=== PATIENT | male | born 1985 | race Caucasian/White ===

== ENCOUNTER 2023-01-26 05:05 | Observation (INO) | payer OTHER, SELFPAY ==
[2023-01-26] VITALS (24 sets, daily range): BP systolic 113–158; BP diastolic 10–103; PULSE 76–100; RESP 14–20; TEMP 36.4–37.2; O2SAT 94–99; BMI 28.0; BMI 29.2
--- NOTE | 2023-01-26 05:22 | ED.CHESTPAI1 ---
HPI - Chest Pain General Chief Complaint: Chest Pain Stated Complaint: fast heart rate Time Seen by Provider: 01/26/23 05:17 History of Present Illness HPI narrative: patient woke up from sleeping on the couch and walked up stairs to go to bed. Noticed his heart was racing while walking up the stairs. Went to the bathroom and while standing there to urinate became nauseated and diaphoretic. Decided to go back down stairs and became light headed and also developed indigestion just beneath his left rib cage. Had similar indigestion last week. Decided to come in to get checked. He now arrives asymptomatic. Past history of HTN and has known aneurysm right iliac that is followed by [facility] MD complaint: Reports chest pain Related Data Home Medications Medication Instructions Recorded Confirmed buspirone 10 mg tablet mg 01/26/23 dextroamphetamine-amphetamine 5 mg 5 mg PO DAILY 01/26/23 01/26/23 tablet (Adderall) losartan 25 mg tablet mg 01/26/23 pantoprazole 40 mg tablet,delayed mg PO 01/26/23 release Allergies Allergy/AdvReac Type Severity Reaction Status Date / Time Penicillins Allergy Unknown Verified 01/26/23 05:13 Review of Systems ROS Status of ROS 10 or more systems reviewed and unremarkable except as noted in history and below PFSH PFS Social History Smoking status: Never smoker Exam Constitutional Vital Signs, click to edit/add: Last Vital Signs Temp 97.6 F 01/26/23 05:08 Pulse 84 01/26/23 06:40 Resp 19 01/26/23 06:40 BP 129/100 H 01/26/23 06:30 Pulse Ox 96 01/26/23 06:40 O2 Del Method Room Air 01/26/23 05:08 Common normals: no apparent distress, average body habitus, oriented x3, no limitations and healthy appearing HENFL Common normals: normocephalic and head/scalp atraumatic Eye Common normals: PERRL, EOMs intact bilaterally and conjunctivae normal Respiratory Common normals: normal respiratory effort and no retractions Cardio Common normals: regular rate, regular rhythm, S1 normal heart sound and S2 normal heart sound GI Common normals: Normal to inspection, nondistended, normoactive bowel sounds present, soft to palpation and non-tender Extremity Common normals: normal to inspection and full ROM Neuro Common normals: oriented x3, CN's II-XII intact bilaterally, moves all extremities, no focal motor deficits and no sensory deficits noted Psych Appearance: grossly normal Course Vital Signs Vital signs: Vital Signs Temperature 97.6 F 01/26/23 05:08 Pulse Rate 88 01/26/23 05:08 Respiratory Rate 14 01/26/23 05:08 Blood Pressure 158/10 H 01/26/23 05:08 Pulse Oximetry 99 01/26/23 05:08 Oxygen Delivery Method Room Air 01/26/23 05:08 Temperature 97.6 F 01/26/23 05:08 Pulse Rate 84 01/26/23 06:40 Respiratory Rate 19 01/26/23 06:40 Blood Pressure 129/100 H 01/26/23 06:30 Pulse Oximetry 96 01/26/23 06:40 Oxygen Delivery Method Room Air 01/26/23 05:08 MDM - Chest Pain MDM Narrative Medical decision making narrative: patient presents with complaint of indigestion. Episode last week. This AM indigestion was preceded by heart racing , diaphoresis , nausea and near syncope. EKG NSR with nonspecific inverted Ts not seen on EKG 04/2022. cxray normal and first troponin neg. Discussed with Dr De La O and will plan ob admission if 2nd Troponin is neg also Lab Data Labs: Lab Results 01/26/23 Range/Units 05:17 WBC 7.5 (4.0-11.0) 10^3/uL RBC 5.12 (4.70-6.10) 10^6/uL Hgb 15.5 (14.0-18.0) g/dL Hct 46.0 (42.0-54.0) % MCV 89.8 (80.0-94.0) fL MCH 30.3 (25.9-34.0) pg MCHC 33.7 (29.9-35.2) g/dL RDW 14.9 (11.0-15.0) % Plt Count 244 (150-450) 10^3/uL MPV 10.7 (9.5-13.5) fL Neut % (Auto) 60.3 (43.0-75.0) % Lymph % (Auto) 27.4 (20.5-60.0) % Curry % (Auto) 8.3 (1.7-12.0) % Eos % (Auto) 2.9 (0.9-7.0) % Baso % (Auto) 0.8 (0.2-2.0) % Neut # (Auto) 4.5 (1.4-6.5) 10^3/uL Lymph # (Auto) 2.1 (1.2-3.8) 10^3/uL Curry # (Auto) 0.6 (0.3-0.8) 10^3/uL Eos # (Auto) 0.2 (0.0-0.7) 10^3/uL Baso # (Auto) 0.1 (0.0-0.1) 10^3/uL Abs Immat Gran (auto) 0.02 (0.00-0.03) 10^3/uL Imm/Tot Granulo (auto) 0.3 (0.0-0.5) % D-Dimer <0.19 (<=0.59) mg/L FEU Sodium 138 (136-145) mmol/L Potassium 3.5 (3.5-5.1) mmol/L Chloride 101 (98-107) mmol/L Carbon Dioxide 31.3 (21.0-32.0) mmol/L Anion Gap 9.2 BUN 16.0 (7.0-18.0) mg/dL Creatinine 1.41 H (0.70-1.30) mg/dL Est GFR ( Amer) >60 (>=60) Est GFR (Non-Af Amer) 56 L (>=60) BUN/Creatinine Ratio 11.3 Glucose 115 H (74-106) mg/dL Calcium 8.8 (8.5-10.1) mg/dL Troponin I High Sens 8.4 (4.0-76.1) pg/mL Discharge Plan Discharge Chief Complaint: Chest Pain Clinical Impression: Chest pain Patient Disposition: Admitted as Observation
--- NOTE | 2023-01-26 05:26 | XR_ITS ---
The [address] [address] Patient Name: MAGO MARTINEZ MRN: [id number] date: 1985 Sex: M Assigned Patient Location: ER Current Patient Location: ER Accession/Order Number: [id number] Exam Date: 01/26/2023 05:31 Report Date: 01/26/2023 06:46 At the request of: PATT GUERRA Procedure: XR chest 1V EXAM: XR chest 1V HISTORY: chest pain COMPARISON: 04/11/2022 TECHNIQUE: AP FINDINGS: Cardiac silhouette is within normal limits. The lung thompson show no evidence for consolidation, infiltrate, pneumothorax or pleural effusions. The diaphragmatic and osseous structures are intact without evidence for an acute osseous abnormality. Chronic posterior left eighth and right ninth fractures again visualized. XR/XR chest 1V IMPRESSION: No acute cardiopulmonary process. Electronically authenticated by: SONYA SNYDER Date: 01/26/2023 06:46
--- NOTE | 2023-01-26 05:26 | ECG_ITS ---
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
[2023-01-26 05:33] LABS: Basophils Absolute Auto 0.1 10^3/uL (0.0-0.1); Basophils Percent Auto 0.8 % (0.2-2.0); Eosinophils Absolute Auto 0.2 10^3/uL (0.0-0.7); Eosinophils Percent Auto 2.9 % (0.9-7.0); Hemoglobin 15.5 g/dL (14.0-18.0); Immature Granulocytes Abs Auto 0.02 10^3/uL (0.00-0.03); Immature Granulocytes Pct Auto 0.3 % (0.0-0.5); Lymphocytes Absolute Auto 2.1 10^3/uL (1.2-3.8); Lymphocytes Percent Auto 27.4 % (20.5-60.0); Mean Corpuscular HGB Conc 33.7 g/dL (29.9-35.2); Mean Corpuscular Hemoglobin 30.3 pg (25.9-34.0); Mean Corpuscular Volume 89.8 fL (80.0-94.0); Mean Platelet Volume 10.7 fL (9.5-13.5); Monocytes Absolute Auto 0.6 10^3/uL (0.3-0.8); Monocytes Percent Auto 8.3 % (1.7-12.0); Neutrophils Absolute Auto 4.5 10^3/uL (1.4-6.5); Neutrophils Percent Auto 60.3 % (43.0-75.0); Platelet Count 244 10^3/uL (150-450); Red Blood Count 5.12 10^6/uL (4.70-6.10); Red Cell Distribution Width 14.9 % (11.0-15.0); White Blood Count 7.5 10^3/uL (4.0-11.0)
--- NOTE | 2023-01-26 05:37 | PC.NURSE ---
Patient's just came to let me know that she was looking at the record on her phone from her 's Dexcom glucose meter, and it shows that at 0430am which is around the time he woke up feeling sweaty, nauseous an feeling the palpitations, his blood sugar dropped from near 100 to around 45 in the matter of 30 minutes, and right now it is almost 150 and he has not eaten anything since midnight. This was passed along to Dr Cedillo and I told her it would be included in his chart.
[2023-01-26 05:47] LABS: D Dimer <0.19 mg/L FEU (<=0.59)
[2023-01-26 05:50] LABS: Anion Gap 9.2; BUN Creatinine Ratio 11.3; Calcium 8.8 mg/dL (8.5-10.1); Carbon Dioxide 31.3 mmol/L (21.0-32.0); Chloride 101 mmol/L (98-107); Estimated GFR (African America >60 (>=60); Estimated GFR (Non-African Ame 56 (>=60); Glucose 115 mg/dL (74-106); Potassium 3.5 mmol/L (3.5-5.1); Sodium 138 mmol/L (136-145); Troponin I High Sensitivity 8.4 pg/mL (4.0-76.1)
[2023-01-26 07:50] LABS: Troponin I High Sensitivity 9.3 pg/mL (4.0-76.1)
[2023-01-26] MEDS: ONDANSETRON 4 MG RAPDIS TABLET SL (08:55)
[2023-01-26 11:03] LABS: Troponin I High Sensitivity 8.5 pg/mL (4.0-76.1)
--- NOTE | 2023-01-26 11:12 | P.HP_ITS ---
H&P: HPI History of Present Illness Chief complaint: Heart racing Narrative: 37 y/o male to ER with heart racing. Woke up around 4 am and went upstairs. [place] heart racing then became very lightheaded. [place] hot and sweaty and broke out in sweat. Developed discomfort under left ribs and indigestion. To ER and symptoms had resolved. Reports vagus nerve problems and autonomic dysfunction since having Covid-19. Follows with specialists at [facility] and had echo and treadmill stress test about 1 month ago both of which were normal. C/o mild HERBERT and reports history of migraines. In ER troponin normal. EKG shows T wave inversion new since April 2022. Admitted for observation. Continues to have mild nausea and HERBERT. Reports EKG changes off and on since having covid and following with specialists. Review of Systems ROS Constitutional Denies: fever, chills or malaise Cardiovascular Reports: palpitations and lightheadedness; Denies: chest pain or edema Respiratory Denies: shortness of breath, cough or wheezing Gastrointestinal Reports: abdominal pain and nausea; Denies: vomiting or diarrhea Genitourinary Denies: painful urination [facility] Medical History (Updated 01/26/23 @ 11:16 by Venkatesh De La O MD) Chest pain ?R07.9 - Chest pain, unspecified (ICD-10) Testicular cancer ?C62.90 - Malignant neoplasm of unspecified testis, unspecified whether descended or undescended (ICD-10) Testosterone deficiency ?E34.9 - Endocrine disorder, unspecified (ICD-10) Urinary hesitancy ?R39.11 - Hesitancy of micturition (ICD-10) Surgical History (Updated 01/26/23 @ 09:15 by Nathaly Rodríguez) History of orchiectomy, unilateral ?Z90.79 - Acquired absence of other genital organ(s) (ICD-10) Family History (Updated 01/26/23 @ 09:17 by Nathaly Rodríguez) Grandmother Family history of cancer Father Family history of hypertension Grandfather Family history of stroke Social History (Updated 01/26/23 @ 09:19 by Nathaly Rodríguez) Within the past year, how often did you have a drink containing alcohol: 2-3 times a week Within the past year, how many standard drinks containing alcohol did you have on a typical day: 1 or 2 Within the past year, how often did you have six or more drinks on one occasion: never Total score: 0 Score interpretation: A score less than 4 is consistent with normal alcohol consumption. Smoking status: Never smoker Non-prescribed substance use: denies use Previous occupational history: [employer] Highest level of school completed/degree received: high school graduate Are you now , , , , never or living with a partner: living with partner Little interest or pleasure in doing things: not at all Feeling down, depressed, or hopeless: not at all Feel stressed/tense/nervous/anxious/difficulty sleeping: not at all Due to disability, difficulty making decisions: No Gender Identity: male Meds Home Medications and Allergies Home Medications Medication Instructions Recorded Confirmed Type buspirone 10 mg tablet 10 mg PO BID 01/26/23 01/26/23 History dextroamphetamine-amphetamine 5 mg 10 mg PO BID 01/26/23 01/26/23 History tablet (Adderall) diclofenac sodium 25 mg 75 mg PO BID PRN pain 01/26/23 01/26/23 History tablet,delayed release losartan 25 mg tablet 25 mg PO .qod 01/26/23 01/26/23 History pantoprazole 40 mg tablet,delayed 40 mg PO BID 01/26/23 01/26/23 History release triazolam 0.25 mg tablet (Halcion) 0.25 mg PO QDAY 01/26/23 01/26/23 History Allergies Allergy/AdvReac Type Severity Reaction Status Date / Time Penicillins Allergy Unknown Verified 01/26/23 05:13 Exam Constitutional Vital Signs, click to edit/add: Last Vital Signs Temp 98.1 F 01/26/23 08:51 Pulse 90 01/26/23 10:07 Resp 20 01/26/23 08:51 BP 135/77 01/26/23 08:51 Pulse Ox 95 01/26/23 08:51 O2 Del Method Room Air 01/26/23 08:51 Documenting provider has reviewed patient's vital signs: yes Common normals: no apparent distress, oriented x3 and alert HENMT Common normals: normocephalic Eye Common normals: PERRL and EOMs intact bilaterally Respiratory Common normals: normal respiratory effort and clear to auscultation bilaterally Cardio Common normals: regular rate, regular rhythm, no gallops, no murmurs and no rub GI Common normals: Normal to inspection, nondistended, normoactive bowel sounds present and non-tender Extremity Common normals: no pedal edema Results Labs Labs: Short CBC 01/26/23 Range/Units 05:17 WBC 7.5 (4.0-11.0) 10^3/uL Hgb 15.5 (14.0-18.0) g/dL Hct 46.0 (42.0-54.0) % Plt Count 244 (150-450) 10^3/uL BMP 01/26/23 05:17 Sodium 138 Potassium 3.5 Chloride 101 Carbon Dioxide 31.3 BUN 16.0 Creatinine 1.41 H Glucose 115 H Calcium 8.8 ECG Attestation: ?I have reviewed the pertinent ECG results. 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 Troponin negative x 3 and no further palpitations. Stress test and echo normal 1 month ago. Will discharge home. Developed autonomic dysfunction after Covid and likely causing symptoms or potentially related to migraine. Give GI cocktail. Use toradol and zofran PRN. F/u with specialists in 1-2 weeks. Resume home medication without change.
[2023-01-26] MEDS: KETOROLAC TROMETHAMINE 30 MG/ML VIAL IVP (11:22)
[2023-01-26] MEDS: lidocaine HCL 15 ML, MAG HYDROX/ALUMINUM HYD/SIMETH 30 ML, HYOSCYAMINE SULFATE 0.25 MG PO (12:51)
--- NOTE | 2023-01-27 12:20 | CM.DCFOLLOWU ---
Person spoke with: Sandeep How are you feeling? better How is your pain? No pain Did you understand your discharge instructions? yes Do you have any questions about your discharge instructions? No Were you given any prescriptions at discharge? No Were you able to get your prescriptions filled? N/A Do you understand how to take your medications as ordered? yes Do you have any questions about your follow up appointment and do you plan to keep your follow up appointment? I have reached out to my [facility] for appt, awaiting call back Is there anything else that you would like to discuss? No Questions/Comments/Concerns/Other:
[2023-01-28 10:13] LABS: Insulin 11.6 uIU/mL (2.6-24.9)
== END 2023-01-26 16:08 | disposition home or self-care (01) ==
LOC: ER 06:51 → MS 08:41
PROVIDERS: Emergency Medicine; Admitting Provider Family Medicine; Emergency Provider Internal Medicine; Visit Provider Family Medicine
DX: R42 Dizziness and giddiness (principal); R94.31 Abnormal electrocardiogram [ECG] [EKG]; R00.2 Palpitations; U09.9 Post COVID-19 condition, unspecified; G52.2 Disorders of vagus nerve; G43.909 Migraine, unspecified, not intractable, without status migrainosus; K29.60 Other gastritis without bleeding; I10 Essential (primary) hypertension; R07.9 Chest pain, unspecified; I72.3 Aneurysm of iliac artery; Z85.47 Personal history of malignant neoplasm of testis; Z90.79 Acquired absence of other genital organ(s); Z79.899 Other long term (current) drug therapy
CPT/HCPCS: 36415; 71045; 80048; 83525; 84484; 85025; 85378; 93005; 96374; 99285; G0378